=== PATIENT | male | born 1945 | race Caucasian/White ===

== ENCOUNTER 2019-08-08 08:34 | Emergency (ER) | payer OTHER, SELFPAY ==
[2019-08-08 08:35] VITALS: BP 145/78; PULSE 89; RESP 20; TEMP 37.3; O2SAT 94; BMI 29.4
--- NOTE | 2019-08-08 08:41 | RAD_ITS ---
STUDY: X-RAY CHEST REASON FOR EXAM: Male, 74 years old. LEFT LOWER CHEST PAIN, MUCH WORSE WITH INSPIRATION TECHNIQUE: Single AP portable view of the chest. COMPARISON: None. FINDINGS: EKG electrodes are seen. Mild elevation of the right hemidiaphragm. Minimal increased linear markings at the left lung base suggestive of linear atelectasis and/or scarring. There is no demonstrated pleural abnormality. Normal size heart. Normal mediastinum and haider. Normal visualized pulmonary arteries. There is atherosclerotic tortuosity of the aortic arch and descending thoracic aorta. There are diffuse degenerative changes of the visualized thoracic spine. Normal visualized ribs, clavicles, and shoulders. There is no demonstrated abnormality of the visualized soft tissue structures of the upper abdomen. RAD/Chest 1 View (Portable) IMPRESSION: Mild increased linear markings at the left lung base suggestive of atelectasis and/or scarring. Electronically Signed: Todd Nguyen, at 9:18 EST , Service support ,
--- NOTE | 2019-08-08 08:41 | EKG12_ITS ---
Test Reason : CP Blood Pressure : / mmHG Vent. Rate : 092 BPM Atrial Rate : 092 BPM P-R Int : 138 ms QRS Dur : 076 ms QT Int : 362 ms P-R-T Axes : 052 006 017 degrees QTc Int : 447 ms Sinus rhythm with frequent Premature ventricular complexes Otherwise normal ECG Confirmed by SCOTT LAWSON, MARTIN ([id number]), editor publications KATIE JOHN ([id number]) on 08/11/2019 12:31:03 PM Referred By: DARLENE Confirmed By:MARTIN CHAVEZ MD
--- NOTE | 2019-08-08 08:43 | ED.DCSUM_ITS ---
History of Present Illness Chief Complaint: Chest Pain Informant: Patient Onset: Yesterday Context: Gradual Onset Timing: Waxes and wanes Current Severity: Mild Maximum Severity: Moderate Narrative: Patient presents with pressure and sharp pain just below the left lower ribs of his chest that started yesterday. Patient denies shortness of breath. He states pain is worse when he is sitting and is better when he is up walking around. Patient did have a recent right leg injury after being thrown from a horse. Family is concerned for possible blood clot. He has known known significant cardiac history. Past Medical History - Allergies and Home Meds Allergies/Adverse Reactions: Allergies Penicillins Allergy (Verified 08/08/19 08:39) Rash Primary Care Physician: Newton Wheat DO [Primary Care Provider] - 1-2 Weeks Past Medical History: None Lives: With Family Smoking Status: Never smoker - Family History Maternal Family History: Reports: - - no VTE Review of Systems General: Denies: Chills, Fever Eyes: Denies: Visual changes - bilaterally ENT: Denies: Bilateral ear pain Cardiovascular: Reports: Chest pain. Denies: Palpitations, Heart racing Respiratory: Reports: Cough - Mild dry cough. Denies: Dyspnea Gastrointestinal: Denies: Abdominal pain, Nausea, Vomiting, Diarrhea Musculoskeletal: Reports: Arthralgias, Extremity Pain Skin: Denies: Rash Neurological: Denies: Headache Hematologic: Denies: Easy bruising, Easy bleeding Allergy: Denies: Uticaria Physical Exam Vital Signs/Narrative: Vital Signs Temp Pulse Resp BP Pulse Ox 08/08/19 08:35 99.1 F 89 20 H 145/78 H 94 Inital Vital Signs reviewed: Yes General: Well nourished, Well developed Head: Normocephalic ENT: Moist mucous membranes Neck: Supple Cardiovascular: Irregular - Intermittently irregular Respiratory: No distress, CTA bilaterally, Chest nontender Abdomen: Soft, Nontender Extremities: - - Mild edema to the right lower extremity. Patient states his right leg is always larger than his left. There is no focal tenderness. Skin: Normal color Neurological: Alert, Oriented x3 Psychological: Normal affect Diagnostic/Tx/Re-eval Impressions Chest X-Ray 08/08/19 08:41 IMPRESSION: Mild increased linear markings at the left lung base suggestive of atelectasis and/or scarring. Electronically Signed: Todd Nguyen at 9:18 EST , Service support , Chest CTA 08/08/19 09:41 IMPRESSION: Multiple pulmonary emboli seen in the distal portion of the left pulmonary artery and the branches. Small left pleural effusion with bibasilar atelectasis and/or infiltrate superimposed on chronic changes. Electronically Signed: Todd Nguyen, at 10:35 EST , Service support , 08/08/19 08:41 Chest 1 View (Portable) [RAD] Stat 08/08/19 09:41 CTA Chest W/WO Contrast [CT] Stat Laboratory Results 08/08/19 08/08/19 08/08/19 08:45 08:45 08:45 WBC 10.5 RBC 5.00 Hgb 15.0 Hct 44.9 MCV 89.8 MCH 30.0 MCHC 33.4 RDW Std Deviation 41.4 RDW Coeff of Coco 12.6 Plt Count 264 MPV 9.4 Immature Gran % (Auto) 0.300 Neut % (Auto) 75.9 H Lymph % (Auto) 14.4 L Andrews % (Auto) 8.1 Eos % (Auto) 1.0 Baso % (Auto) 0.3 Absolute Neuts (auto) 8.0 H Absolute Lymphs (auto) 1.51 Nucleated RBC % 0 D-Dimer Quant (PE/DVT) 11.37 H* Sodium 135 L Potassium 5.1 Chloride 104 Carbon Dioxide 28.0 Anion Gap 3 L BUN 16 Creatinine 1.14 Estim Creat Clear Calc 57.81 Est GFR (MDRD) Af Amer 81 Est GFR (MDRD) Non-Af 67 BUN/Creatinine Ratio 14.0 Glucose 106 Calcium 9.3 Troponin I < 0.015 - EKG Initial EKG Interpretation: Sinus Rhythm - Sinus at 92 with occasional PVCs. No acute ischemia. - Medical Decision Making Patient was given aspirin on arrival. D-dimer is significantly elevated and CTA does confirm multiple left-sided pulmonary emboli with a small pleural effusion. Patient is ordered a dose of Xarelto. does not feel comfortable taking care of him at home currently. I will speak with hospitalist regarding observation overnight to ensure his stability. Addendum: Hospitalist presented to the emergency room and spoke with the family. He explained that the treatment in the hospital would not be any different than at home. Patient is clinically stable this time he does not require admission. Family now is apparently comfortable with this plan. I will write him a prescription for Xarelto. ED Disposition - Plan for ED Patient: Disposition: Home or Assisted Living Diagnosis: Pulmonary emboli Instructions: Pulmonary Embolism Prescriptions: Rivaroxaban [Xarelto] 15 mg PO BID #42 tab Transmission Status: Received by [id number] Referrals: Newton Wheat DO [Primary Care Provider] - 1-2 Weeks
[2019-08-08] MEDS: 0.9% Normal Saline 1,000 ML 150 ML IV (09:01)
[2019-08-08] MEDS: Aspirin 81 MG TAB.CHEW 324 MG PO (09:02)
[2019-08-08 09:06] LABS: Absolute Lymphocyte Count 1.51 X10^3/uL (0.83-4.51); Basophil# 0.03 X10^3/uL; Basophil% 0.3 % (0-1); Hematocrit 44.9 % (40-54); Lymphocyte # 1.51 X10^3/ul (4.0); Lymphocyte % 14.4 % (19-41); Mean Corp Hgb Conc 33.4 g/dL (32-36); Mean Corpuscular Volume 89.8 fL (80-94); Mean Platelet Vol. 9.4 fl (6.2-12.0); Monocyte# 0.85 X10^3/uL; Monocyte% 8.1 % (0-10); NRBC Flagged by Analyzer 0 % (0-5); Neutrophil # 7.98 X10^3/uL (2.7-7.7); Neutrophil % 75.9 % (47-70); Platelet Count 264 K/mm3 (150-450); RBC Distribution Width CV 12.6 % (11.6-14.6); RBC Distribution Width SD 41.4 fl (35.1-43.9); White Blood Count 10.5 K/mm3 (4.4-11.0)
[2019-08-08 09:14] LABS: Anion Gap 3 (5-15); BUN 16 mg/dL (7-18); Calcium,Total 9.3 mg/dL (8.5-10.1); Chloride 104 mmol/L (98-107); Creatinine, Serum 1.14 mg/dL (0.70-1.30); EST Glomerular Filtration Rate 67 mL/min (>60); Est Glom Filt Rate - Afr Amer 81 mL/min (>60); Estimated Creatinine Clearance 57.81 ml/min; Glucose 106 mg/dL (74-106); Potassium 5.1 mmol/L (3.5-5.1); Sodium Level 135 mmol/L (136-145)
[2019-08-08 09:40] LABS: D-Dimer Quantitative (DVT/PE) 11.37 FEU/ug/m (0.27-0.49)
--- NOTE | 2019-08-08 09:41 | CT_ITS ---
STUDY: CTA CHEST REASON FOR EXAM: Male, 74 years old. LEFT SIDED CHEST PAIN WITH RECENT LEG INJURY RADIATION DOSAGE (If Supplied By Facility): CTDIvol = ( 17.85 ) mGy, DLP = ( 388.90 ) mGycm TECHNIQUE: The examination was performed with the intravenous administration of 100 CC ISOVUE 370. Post-processing of the angiographic images was performed, with multiplanar reformation and 3D reconstruction. Individualized dose optimization techniques were used for this CT. COMPARISON: None. FINDINGS: Small bilateral benign appearing axillary lymph nodes. Several intraluminal filling defects are seen in the distal portion of the left pulmonary artery as well as the branches of the intermediate left pulmonary artery and branches of the left upper and left lower pulmonary artery. Normal thoracic aorta and visualized great vessels. There is no demonstrated aortic dissection. There are calcifications of the coronary arteries. Normal mediastinum. Normal hilar regions. Normal visualized trachea and bronchi. The lungs are well expanded. Small left pleural effusion with the bibasilar atelectasis and/or infiltrates worse on the left side superimposed on mild degree of scarring. Normal chest wall structures. There are degenerative changes of thoracic spine. Normal visualized upper abdomen. CT/CTA Chest W/WO Contrast IMPRESSION: Multiple pulmonary emboli seen in the distal portion of the left pulmonary artery and the branches. Small left pleural effusion with bibasilar atelectasis and/or infiltrate superimposed on chronic changes. Electronically Signed: Todd Nguyen, at 10:35 EST , Service support ,
[2019-08-08 11:31] VITALS: BP 159/80; PULSE 88; RESP 24; O2SAT 94
[2019-08-08] MEDS: Rivaroxaban 15 MG Tablet PO (11:33)
--- NOTE | 2019-08-08 12:02 | CON.PCM_ITS ---
Problem List (1) Pulmonary emboli Status: Acute Qualifiers: Pulmonary embolism type: multiple subsegmental (without acute cor pulmonale) Qualified Code(s): I26.94 - Multiple subsegmental pulmonary emboli without acute cor pulmonale Reason for Consult Date of Consultation: 08/08/19 Reason for Consultation: chest pain History of Present Illness: The patient is a 74 year old M presents with left sided chest pain. 2 weeks ago he was injured in his right leg by his horse. Pain in his right leg and was limited mobility. Saw Dr. Farris and was informed it wasn't broken. Took ASA 325 BID afterwards (at his 's recommendation). Chest pain today. Presented to ED and had a CTA that showed PE. Received rivaroxaban in ED. [] Past Medical History Allergies Penicillins Allergy (Verified 08/08/19 08:39) Rash Home Medications: Ambulatory Orders Medication Instructions Recorded Aspirin 325 mg PO DAILY 08/08/19 Rivaroxaban [Xarelto] 15 mg PO BID #42 tab 08/08/19 Lives: With Family Smoking Status: Never smoker - *Family History Maternal History Items: - - no VTE Review of Systems Constitutional: Denies: Anorexia, Chills, Fever Eyes: Denies: Blurred vision, Double vision HEENT: Denies: Head Aches, Sinus Congestion, Sinus Drainage Cardiovascular: Reports: Chest Pain Respiratory: Denies: Cough, Shortness of breath at rest, Sputum production Gastrointestinal: Denies: Hematochezia, Melena Genitourinary: Denies: Hematuria Hematologic/ Lymphatic: Denies: Easy Bruising, Easy Bleeding, Hx of blood clot Comment: All review systems are otherwise negative except for as mentioned above and in HPI. Patient Problems: Active and Suspected Problems Pulmonary emboli (Acute) - Physical Exam Vitals/I&O's: Vital Signs Temp Pulse Resp BP Pulse Ox 37.3 C 88 24 H 159/80 H 94 08/08/19 08:35 08/08/19 11:31 08/08/19 11:31 08/08/19 11:31 08/08/19 11:31 Oxygen Delivery Method Room Air Weight: 92.986 kg Body Mass Index (BMI) 29.4 General: Alert, Cooperative HEENT: Atraumatic, Normocephalic Oral: Moist Mucosa, No Gingival or Mucosal Lesions/ Ulcerations Neck: No Nodes, Trachea Midline Lungs: Clear to auscultation, Normal air movement, No rhonchi, No wheeze, No rales Cardiovascular: Regular rate, Regular Rhythm, Normal S1, Normal S2, No murmurs Abdomen: Bowel Sounds Present, Soft, Non Tender, Non-Distended, No Hepato- splenomegaly, Passing Flatus Extremities: No edema, No Calf Tenderness Skin: No rashes, No breakdown Musculoskeletal: No Tenderness to Palpation of Joints or Extremities, No Muscle Wasting Lymphatic: No Cervical, Supraclavicular, or Inguinal Adenopathy, Cervical Adenopathy Psych/Mental Status: Normal Affect, Appropriate Laboratory Results 08/08/19 08:45: WBC 10.5, RBC 5.00, Hgb 15.0, Hct 44.9, MCV 89.8, MCH 30.0, MCHC 33.4, RDW Std Deviation 41.4, RDW Coeff of Coco 12.6, Plt Count 264, MPV 9.4, Immature Gran % (Auto) 0.300, Neut % (Auto) 75.9 H, Lymph % (Auto) 14.4 L, [place] % (Auto) 8.1, Eos % (Auto) 1.0, Baso % (Auto) 0.3, Absolute Neuts (auto) 8.0 H, Absolute Lymphs (auto) 1.51, Nucleated RBC % 0 08/08/19 08:45: Sodium 135 L, Potassium 5.1, Chloride 104, Carbon Dioxide 28.0, Anion Gap 3 L, BUN 16, Creatinine 1.14, Estim Creat Clear Calc 57.81, Est GFR (MDRD) Af Amer 81, Est GFR (MDRD) Non-Af 67, BUN/Creatinine Ratio 14.0, Glucose 106, Calcium 9.3, Troponin I < 0.015 08/08/19 08:45: D-Dimer Quant (PE/DVT) 11.37 H* Current Medications Sodium Chloride () 1,000 mls @ 150 mls/hr IV .[id number] [facility] Last Admin: 08/08/19 09:01 Dose: 150 mls/hr Documented by: Assessment/Plan All Active Problems Pulmonary emboli (Acute) 1. Acute pulmonary emboli * hemodynamically stable * Agree with Dr. Clifford with rivaroxaban. Will need to be treated for at least 3 months, more likely 6 months. * No need for echo, duplex--won't change mgmt * Admission not necessary 2. chest pain * 2/2 above * reassurance provided that it will go away over time, but it may be several weeks. * PRN acetaminophen, 1000mg Q6h prn. Told to avoid OTC agents that contain acetaminophen otherwise. * No NSAIDs DW family. All are comfortable going home. Code Visit Office Visits / Consults: [id number] OP Consult L4
--- NOTE | 2019-08-08 12:02 | CM.ED ---
Social Work Consult: Resources, prescription assistance. Informant: Dr. Clifford Met with patient and patient family in room. Introduced self as well as certified social workers in health care role. Patient agreeable to speak with this certified social workers in health care. Patient stating to be going home on Xarelto and to have no insurance. Provided patient with 30-day free trial coupon as well as encouraged patient to speak with primary care physician about long-term assistance depending on how long it is determine patient needs to be on Xarelto. Patient voicing no further needs. Patient thanking this certified social workers in health care. Patient to discharge to home with family. Trace THOMAS, KIARA
[2019-08-08 12:21] VITALS: BP 151/82; PULSE 82; RESP 18; O2SAT 94
== END 2019-08-08 12:22 | disposition home or self-care (01) ==
PROVIDERS: Emergency Provider Emergency Medicine; PCP Family Medicine
DX: I26.99 Other pulmonary embolism without acute cor pulmonale (principal); J90 Pleural effusion, not elsewhere classified; S89.91XA Unspecified injury of right lower leg, initial encounter; I49.3 Ventricular premature depolarization; V80.010A Animal-rider injured by fall from or being thrown from horse in noncollision accident, initial encounter; Y93.52 Activity, horseback riding; Y92.9 Unspecified place or not applicable
CPT/HCPCS: 71045; 71275; 80048; 84484; 85025; 85379; 93005; 96360; 96361; 99284; J7030; Q9967; A4216

== ENCOUNTER 2024-02-01 15:32 | Emergency (ER) | payer OTHER, SELFPAY ==
[2024-02-01 15:32] VITALS: BP 170/78; PULSE 63; RESP 15; TEMP 36.2; O2SAT 96
--- NOTE | 2024-02-01 18:15 | ED.VIS.LOWEX ---
HPI History of Present Illness Chief Complaint: Lower Extremity Injury Informant: patient and spouse/S.O. Narrative Narrative: 78-year-old male presenting to the emergency room with left hip pain. Patient states a month ago he began to have intermittent pain in the left buttock radiating towards the hip. He states he saw chiropractor 2 weeks ago. Today he was out working when it suddenly radiated down his leg and he states that that it was hard for him to walk uphill and he started using a cane to take weight off the leg denies any recent trauma to it. He notes a prior L4 surgery for spinal stenosis. Patient denies any fevers or rashes. No bowel or bladder dysfunction. He reportedly talked to his doctor's office who sent him to the emergency department for possible blood clot in the leg. [facility] Medical History (Updated 02/01/24 @ 18:[address] Jaguar Parker DO) Spinal stenosis Home Medications ?Medication ?Instructions ?Recorded ?Last Taken ?Type aspirin 325 mg tablet 325 mg PO DAILY 08/08/19 Unknown History rivaroxaban 15 mg tablet 15 mg PO BID #42 tabs 08/08/19 Unknown Rx Allergy/AdvReac Type Severity Reaction Status Date / Time Penicillins Allergy Rash Verified 02/01/24 15:32 Social History Smoking Status: Never smoker ROS ROS ED Constitutional Constitutional ED: Denies chills, fever(s) or weight loss Eyes Eyes: Denies change in vision or diplopia ENT ENT ED: Denies ear pain, rhinorrhea or sore throat Cardiovascular Cardiovascular: Denies chest pain, orthopnea, palpitations or racing heartbeat Respiratory/Chest Respiratory/Chest: Denies cough, dyspnea or orthopnea Gastrointestinal Gastrointestinal: Denies abdominal pain, diarrhea, nausea or vomiting Genitourinary Genitourinary ED: Denies dysuria, hematuria or urinary frequency Musculoskeletal Musculoskeletal: Reports other Details: Left buttock pain left leg pain ; Denies arthralgias or myalgias Integumentary Denies abscess or rash Neurologic Neurologic: Denies headache(s) or weakness Psychiatric Psychiatric: Denies anxiety, depression, suicidal ideation or suicidal thoughts Endocrine Endocrinology: Denies polydipsia, polyphagia or polyuria Allergic/Immunologic Allergic/Immunologic ED: Denies mouth swelling, tongue swelling or urticaria EXAM Physical Exam Const Vital Signs: 02/01/24 15:32 02/01/24 19:54 Temperature 97.2 F L 97.9 F Temperature Source Temporal Pulse Rate 63 74 Respiratory Rate 15 16 Blood Pressure 170/78 H 168/74 H Blood Pressure Mean 108 105 Pulse Ox 96 98 Oxygen Delivery Method Room Air Positive well nourished and well developed General Appearance ED: well developed and NAD HEENT Reports normocephalic, head/scalp atraumatic and moist mucous membranes Eyes PERRL and EOMs intact bilaterally Neck full ROM, no lymphadenopathy, supple and no JVD Resp normal respiratory effort and clear to auscultation bilaterally Cardio regular rate, regular rhythm and no murmurs GI normal to inspection, nondistended, normoactive bowel sounds and non-tender Palpation: soft Back/Spine no CVA tenderness and normal ROM Lumbar Spine / Lower Back: Negative for lumbar spinal tenderness Extremity Extremity Narrative: Patient has very focal tenderness to palpation over the mid to lateral buttock in the distribution of the piriformis muscle. I do not appreciate rash swelling or ecchymosis. Neurovascularly appears intact. There is no foot drop. Sensation is preserved. No lumbar paraspinal tenderness. General Extremety ED: Negative for edema General Extremity: Negative for edema Neuro oriented x3 and CN's II-XII intact bilaterally Sensorium / Orientation: alert Motor Exam: strength 5/5 throughout Psych mental status grossly normal Mood & Affect: Negative for depressed or tearful Skin no rashes or lesions noted and no wounds MDM MDM MDM Narrative Medical decision making narrative: Differential diagnosis includes but not limited to fracture sciatica lumbar radiculopathy bursitis tendinitis The leg is not swollen the calf thigh is not tender I highly doubt DVT. My independent interpretation of the plain films of the left hip including pelvis is no acute fracture. Clinically I believe the patient has sciatica. I can write for pain medication we talked about different stretching techniques. Follow up with PCP if not improving. May benefit from PT History & Record Review Discussion w/independent historian: Patient and Significant other Radiography Diagnostic Testing: Clinical Impression(s) from Imaging Studies Hip/Pelvis X-Ray 02/01/24 18:20 IMPRESSION: No acute radiographic abnormalities. Electronically Signed: Jai Chavez MD at 19:14 EDT , Discharge Plan Triage Chief Complaint: Lower Extremity Injury ED Provider: Jaguar Parker Dx/Rx/DC Orders Clinical Impression: Sciatica, Acute pain of left hip Prescriptions: No Action aspirin 325 MG tablet 325 mg PO DAILY rivaroxaban 15 MG tablet 15 mg PO BID Qty: 42 0RF Primary Care Provider: Newton Wheat Referrals: Newton Wheat DO [Primary Care Provider] - 1 Week Print Language: Maltese Disposition Disposition: Home, Self Care Discharge Date/Time: 02/01/24 19:56
--- NOTE | 2024-02-01 18:20 | RAD_ITS ---
INDICATION: pain EXAMINATION/TECHNIQUE: X-RAY - LEFT XR Hip Unilateral with Pelvis when performed; 2-3 Views COMPARISON: None. FINDINGS: No acute fracture or malalignment. No blastic or lytic lesions. Mild degenerative changes of bilateral hips. The soft tissues are unremarkable. RAD/HIP, UNI W/ Pelvis 2-3 Views IMPRESSION: No acute radiographic abnormalities. Electronically Signed: Jai Chavez MD at 19:14 EDT ,
[2024-02-01 19:54] VITALS: BP 168/74; PULSE 74; RESP 16; TEMP 36.6; O2SAT 98
== END 2024-02-01 19:56 | disposition home or self-care (01) ==
PROVIDERS: Emergency Provider Emergency Medicine; PCP Family Medicine; Visit Provider Emergency Medicine
DX: M54.30 Sciatica, unspecified side (principal); M25.552 Pain in left hip; X58.XXXA Exposure to other specified factors, initial encounter; Y93.89 Activity, other specified
CPT/HCPCS: 73502; 99282